=== PATIENT | male | born 1945 | race Two or more races ===

== ENCOUNTER 2022-03-15 05:30 | Emergency (ER) | payer OTHER ==
[~2022-03-15] VITALS: Ht 170.2 cm; Wt 71.7 kg
[2022-03-15] MEDS ORDERED: AZITHROMYCIN500 MG PO (05:41)
[2022-03-15] MEDS ORDERED: SYNTHROID50 MCG (05:42)
[2022-03-15] MEDS ORDERED: TAMSULOSIN HCL0.4 MG PO (05:42)
[2022-03-15] MEDS ORDERED: OXYBUTYNIN CHLO10 MG PO (05:43)
[2022-03-15] MEDS ORDERED: SIMVASTATIN20 MG PO (05:43)
[2022-03-15] MEDS ORDERED: SYMBICORT 16010.2 GM IH (11:01)
[2022-03-15] MEDS ORDERED: BENZONATATE200 M1 PO (11:01)
[2022-03-15] MEDS ORDERED: MUCINEX DM ER1 EAC1 PO (11:01)
[2022-03-15] MEDS ORDERED: FLONASE ALLERG9.9 ML NASAL (11:03)
== END 2022-03-15 12:04 ==
LOC: ER 05:30
DX: J20.9 Acute bronchitis, unspecified (principal); E03.9 Hypothyroidism, unspecified; N40.0 Benign prostatic hyperplasia without lower urinary tract symptoms